=== PATIENT | female | born 1995 | race Caucasian/White ===

== ENCOUNTER 2017-02-01 19:05 | Emergency (ER) | payer SELFPAY ==
[~2017-02-01] VITALS: Ht 165.1 cm; Wt 106.0 kg
[2017-02-01 19:11] VITALS: BP 145/94
[2017-02-01] MEDS ORDERED: HYDROcodone/APAP 5/325 TABLET ONE (19:48)
[2017-02-01] MEDS ORDERED: LIDOCAINE 1%, 20ML ONE (19:49)
[2017-02-01] MEDS ORDERED: HYDROcodone/APAP 5/325 TABLET PO ONE (20:00)
[2017-02-01] MEDS ORDERED: LIDOCAINE 1%, 20ML SQ ONE (20:00)
== END 2017-02-01 20:48 | disposition home or self-care (01) ==
LOC: ED 20:38
DX: N76.4 Abscess of vulva (principal)
CPT/HCPCS: 56405; 99284; J3490

== ENCOUNTER 2017-02-03 17:39 | Emergency (ER) | payer SELFPAY ==
[~2017-02-03] VITALS: Ht 165.1 cm; Wt 106.9 kg
[2017-02-03 17:52] VITALS: BP 125/81
== END 2017-02-03 18:36 | disposition home or self-care (01) ==
LOC: ED 18:30
DX: N76.4 Abscess of vulva (principal)
CPT/HCPCS: 99281

== ENCOUNTER 2017-11-07 18:18 | Emergency (ER) | payer SELFPAY ==
[~2017-11-07] VITALS: Ht 165.1 cm; Wt 105.1 kg
[2017-11-07] MEDS ORDERED: SODIUM CHLORIDE 0.9% 1,000ML IV ONE (19:00)
[2017-11-07] MEDS ORDERED: ONDANSETRON 2MG/ML, 2ML IVPush ONE (19:00)
[2017-11-07] MEDS ORDERED: KETOROLAC 30 MG/1 ML IVPush ONE (19:00)
[2017-11-07] MEDS ORDERED: SODIUM CHLORIDE FLUSH 10ML SYR IVF ONE (19:00)
[2017-11-07] MEDS ORDERED: KETOROLAC 30 MG/1 ML ONE (19:03)
[2017-11-07] MEDS ORDERED: ONDANSETRON 2MG/ML, 2ML ONE (19:03)
[2017-11-07 19:23] LABS: BASOPHILS # (AUTO) 0.02 x10^3/uL (0-0.3); BASOPHILS % (AUTO) 0 % (0-1); EOSINOPHILS # (AUTO) 0.24 x10^3/uL (0-0.8); EOSINOPHILS % (AUTO) 2 % (1-7); LYMPHOCYTES # (AUTO) 3.33 x10^3/uL (1-6.1); LYMPHOCYTES % (AUTO) 34 % (22-44); MD NO; MEAN CORPUSCULAR HGB CONC 33.6 g/dL (32.4-35.8); MEAN CORPUSCULAR VOLUME 89.2 fL (80-100); MEAN PLATELET VOLUME 9.4 fL (7.4-10.4); MONOCYTES # (AUTO) 0.54 x10^3/uL (0-1.4); MONOCYTES % (AUTO) 6 % (2-9); NEUTROPHILS # (AUTO) 5.76 x10^3/uL (1.8-8.0); NEUTROPHILS % (AUTO) 58 % (42-75); PLATELET COUNT 297 x10^3/uL (130-400); RED BLOOD COUNT 4.76 x10^6/uL (3.82-5.3); RED CELL DISTRIBUTION WIDTH 12.4 % (9.6-15.2)
[2017-11-07 19:33] LABS: MICROSCOPIC AUTO
[2017-11-07 19:34] LABS: ALANINE AMINOTRANSFERASE 37 U/L (12-78); ALBUMIN 3.6 g/dL (3.4-5.0); ANION GAP 9 mmol/L (5-15); CALCIUM 8.9 mg/dL (8.5-10.1); CHLORIDE 105 mmol/L (98-107); CREATININE 0.91 mg/dL (0.55-1.02)
[2017-11-07 19:38] LABS: CULTURE INDICATED? YES
[2017-11-07 19:38] LABS: ALKALINE PHOSPHATASE 49 U/L (45-117); BILIRUBIN,TOTAL 0.2 mg/dL (0.2-1.0); TOTAL PROTEIN 7.8 g/dL (6.4-8.2)
[2017-11-07] MEDS ORDERED: GLIP5TAB10 PO (20:39)
[2017-11-07] MEDS ORDERED: METF10002 PO (20:39)
[2017-11-07 21:18] LABS: MICROSCOPIC INDICATED
[2017-11-07 21:30] LABS: CULTURE INDICATED? YES
[2017-11-07] MEDS ORDERED: CEFTRIAXONE PMX 1GM/50ML 50 ML ONE (21:46)
[2017-11-07] MEDS ORDERED: CEFTRIAXONE 1,000 MG in SODIUM CHLORIDE 0.9% 50 ML IV ONE (22:00)
[2017-11-07 22:12] VITALS: BP 121/77
== END 2017-11-07 22:16 | disposition home or self-care (01) ==
LOC: ED 18:57
DX: N13.6 Pyonephrosis (principal); E11.65 Type 2 diabetes mellitus with hyperglycemia
CPT/HCPCS: 36415; 74176; 80053; 81001; 83690; 84703; 85025; 87077; 87086; 87186; 96361; 96374; 96375; 99285; J1885; J2405; J7030